=== PATIENT | male | born 1980 | race Two or more races ===

== ENCOUNTER 2016-10-03 12:05 | Emergency (ER) | payer OTHER ==
[~2016-10-03] VITALS: Ht 182.9 cm; Wt 93.0 kg
--- NOTE | 2016-10-03 12:57 | Emergency Room Report ---
History of Present Illness General Chief Complaint: Skin Rash/Abscess Source: Patient Present Illness HPI 36 YO Male presents to the ED C/O Erythema, swelling, and induration to a bump on the left cheek, and right anterior lower chest. pt. denies fevers or chills. pt. states he is currently in rehab for heroin addiction. denies IVDU, reports smoking heroin. pt. denies itching. Pt states pain is 7/10 in severity and localized to the two lesions, and exacerbated with palpation. pt. admits to digital manipulation several days ago which he believes caused lesions to swell. Pt. states he is not sure when his last tetanus vaccination was. Denies CP, Palpitations, LOC, AMS, dizziness, Changes in Vision, Sensation, paresthesias, or a sudden severe headache. Allergies: Coded Allergies: No Known Allergies (Unverified , 10/03/16) Patient History Past Medical History: see triage record Past Surgical History: none Pertinent Family History: none Reviewed Nursing Documentation: PMH: Agreed, PSxH: Agreed Nursing Documentation-PMH Past Medical History: No History, Except For Hx Cardiac Problems: No - drug abuse opiates Review of Systems All Other Systems: negative except mentioned in HPI Physical Exam Vital Signs Date Time Temp Pulse Resp B/P Pulse Ox O2 Delivery O2 Flow Rate FiO2 10/03/16 12:30 98.1 77 18 120/78 99 Room Air Sp02 EP Interpretation: reviewed, normal General Appearance: no apparent distress, alert, GCS 15, non-toxic Head: normocephalic, atraumatic, other - swelling, and induration to the left lower cheek. 2.5 cm in diameter. Eyes: bilateral eye PERRL, bilateral eye normal inspection ENT: hearing grossly normal, normal pharynx, no angioedema, normal voice Neck: full range of motion, supple/symm/no masses Respiratory: lungs clear, normal breath sounds, speaking full sentences Cardiovascular #1: regular rate, rhythm, no edema Musculoskeletal: back normal, gait/station normal, normal range of motion, non- tender Neurologic: alert, oriented x3, responsive, motor strength/tone normal, sensory intact, speech normal Psychiatric: judgement/insight normal, memory normal, mood/affect normal Skin: normal color, no rash, warm/dry, well hydrated, other - two localized areas of swelling, and induration to the left lower cheek. 2.5 cm in diameter. and right anterior chest 2cm, tenderness to both with surrounding erythema. Procedures Incision and Drainage Incision and Drainage #1: Consent: Verbal Site: left lower cheek Blade Size: 11 I & D Procedure: betadine prep Wound Location: face Wound's Depth, Shape: superficial Wound Length (cm): 0 Wound Explored: contaminated - purulent d/c , and thick capsule also noted. Anesthesia: Lidocaine w/ Epi Volume Anesthetic (ccs): 1 Patient Tolerated: Well Complications: None Incision and Drainage #2: Consent: Verbal Blade Size: 11 I & D Procedure: betadine prep Wound Location: chest - anterior right chest Wound's Depth, Shape: superficial Wound Length (cm): 1 Wound Explored: contaminated - purulent d/c , thick d/c, and capsule noted. Anesthesia: Lidocaine w/ Epi Volume Anesthetic (ccs): 1 Splint Applied?: No Sling Applied?: No Patient Tolerated: Well Complications: None Medical Decision Making PA Attestation Dr. Hernandez is my supervising Physician whom patient management has been discussed with. Diagnostic Impression: Primary Impression: Abscess ER Course 36 YO Male presents to the ED C/O Erythema, swelling, and induration to a bump on the left cheek, and right anterior lower chest. pt. denies fevers or chills. pt. states he is currently in rehab for heroin addiction. denies IVDU, reports smoking heroin. pt. denies itching. Pt states pain is 7/10 in severity and localized to the two lesions, and exacerbated with palpation. pt. admits to digital manipulation several days ago which he believes caused lesions to swell. Pt. states he is not sure when his last tetanus vaccination was. Denies CP, Palpitations, LOC, AMS, dizziness, Changes in Vision, Sensation, paresthesias, or a sudden severe headache. Ddx considered but are not limited to cellulitis, abscess, cystic acne, necrotizing fasciitis, insect bite. Vital signs: are WNL, pt. is afebrile H&PE are most consistent with Soft tissue localized infection/ abscess. ORDERS: none required at this time, the diagnosis is clinical ED INTERVENTIONS: -I & D of abscess of the face and chest- see procedure notes. -Doxycycline PO - Pt. declines tdap as he is worried he is medically un-insured at the moment. DISCHARGE: At this time pt. is stable for d/c to home. Will provide printed patient care instructions, and any necessary prescriptions. Care plan and follow up instructions have been discussed with the patient prior to discharge. Last Vital Signs Date Time Temp Pulse Resp B/P Pulse Ox O2 Delivery O2 Flow Rate FiO2 10/03/16 12:30 98.1 77 18 120/78 99 Room Air Disposition: HOME, SELF-CARE Condition: Stable Scripts Ibuprofen* (MOTRIN*) 600 Mg Tablet 600 MG ORAL THREE TIMES A DAY, #20 TAB 0 Refills Prov: Hanh Borrero 10/03/16 Doxycycline Hyclate* (VIBRAMYCIN*) 100 Mg Capsule 100 MG ORAL EVERY 12 HOURS for 7 Days, #14 CAP 0 Refills Prov: Hanh Borrero 10/03/16 Patient Instructions: Abscess Additional Instructions: Take medications as directed. Follow up with a Primary Care Provider in 3-5 days, even if your symptoms have resolved. --Please review list of primary care clinics, if you do not already have a primary care provider Return sooner to ED if new symptoms occur, or current symptoms become worse. - Please note that this Emergency Department Report was dictated using [employer]supervisor [employer] technology software, occasionally this can lead to erroneous entry secondary to interpretation by the dictation equipment. Hanh Borrero Oct 03, 2016 12:57
[2016-10-03] MEDS ORDERED: Lidocaine 1% 10mg/ml/Epi 0.005mg/ml 30ml vial INJ ONE (13:00)
[2016-10-03] MEDS ORDERED: Bacitracin Oint UD TOPIC ONE (13:00)
[2016-10-03] MEDS ORDERED: VIBRAMYCIN100 MG ORAL (13:15)
[2016-10-03] MEDS ORDERED: IBUPROFEN600 MG ORAL (13:16)
[2016-10-03 14:24] VITALS: BP 123/81
[2016-10-03 14:25] VITALS: BP 120/78
== END 2016-10-03 14:26 | disposition home or self-care (01) ==
LOC: EMR 12:40
DX: L02.01 Cutaneous abscess of face (principal); L02.213 Cutaneous abscess of chest wall
CPT/HCPCS: 10060

== ENCOUNTER 2016-10-29 17:38 | Emergency (ER) | payer OTHER ==
[~2016-10-29] VITALS: Ht 182.9 cm; Wt 95.3 kg
[~2016-10-29 17:38] MED LIST: IBUPROFEN600 MG ORAL; VIBRAMYCIN100 MG ORAL
[2016-10-29] MEDS ORDERED: CEPHALEXIN500 MG ORAL (18:27)
[2016-10-29] MEDS ORDERED: ERYTHROMYCIN3.5 GM LEFT EYE (18:27)
[2016-10-29 18:30] VITALS: BP 118/71
[2016-10-29 18:35] VITALS: BP 118/71
--- NOTE | 2016-10-29 21:57 | Emergency Room Report ---
History of Present Illness General Chief Complaint: Eye Problems Source: Patient Present Illness [facility] The patient is a 36-year-old male presenting for left eye pain. He states pain began 3 days ago localized to the L inferior eyelid. Worse with touch. He denies DC from the eye. Described as a 10 out of 10 throbbing sensation. He is also complaining of possible skin infection of the left cheek. He states that he had incision and drainage within the past month of this area which did help but he has noticed a red rash in the same region. This area is tender as well described as a 5/10 dull ache and does not radiate. Has denies other symptoms including change in vision, nausea, vomiting, fever, chills Allergies: Coded Allergies: No Known Allergies (Unverified , 10/03/16) Patient History Past Medical History: see triage record Pertinent Family History: none Reviewed Nursing Documentation: PMH: Agreed, PSxH: Agreed Nursing Documentation-PMH Hx Cardiac Problems: No - drug abuse opiates Review of Systems All Other Systems: negative except mentioned in HPI Physical Exam Vital Signs Date Time Temp Pulse Resp B/P (MAP) Pulse Ox O2 Delivery O2 Flow Rate FiO2 10/29/16 18:06 98.1 87 20 118/71 98 Room Air Sp02 EP Interpretation: reviewed, normal General Appearance: no apparent distress, alert, GCS 15, non-toxic Head: normocephalic, atraumatic Eyes: left eye other - stye of L inferior eyelid, bilateral eye normal inspection, bilateral eye PERRL, bilateral eye EOMI ENT: hearing grossly normal, normal pharynx, no angioedema, normal voice Neck: full range of motion, supple/symm/no masses Musculoskeletal: back normal, gait/station normal, normal range of motion, non- tender Neurologic: alert, oriented x3, responsive, motor strength/tone normal, sensory intact, speech normal Psychiatric: judgement/insight normal, memory normal, mood/affect normal, no suicidal/homicidal ideation Skin: other - erythema of the L cheek 1cm. Tender Medical Decision Making PA Attestation Dr. Hairston is my supervising physician. Patient management was discussed with my supervising physician Diagnostic Impression: Primary Impression: Hordeolum externum (stye) Qualified Codes: H00.015 - Hordeolum externum left lower eyelid Additional Impression: Cellulitis Qualified Codes: L03.211 - Cellulitis of face ER Course The patient is a 36 yo M presenting for L eye pain and possible skin infection Differential diagnoses considered but not limited to bacterial conjunctivitis, viral conjunctivitis, blepharitiis, hordeolum, cellultis, abscess, among others PE: afebrile. NAD Stye of the L mid inferior eyelid. TTP. No injection. PERRL. L cheek has 1cm erythema over site of past I&D. No fluctuance. Stye information given for warm compress. ER precautions given Last Vital Signs Date Time Temp Pulse Resp B/P (MAP) Pulse Ox O2 Delivery O2 Flow Rate FiO2 10/29/16 18:35 98.1 20 118/71 98 Room Air 10/29/16 18:06 87 Status: improved Disposition: HOME, SELF-CARE Condition: Improved Scripts Cephalexin* (KEFLEX*) 500 Mg Capsule 500 MG ORAL EVERY 12 HOURS, #14 CAP 0 Refills Prov: KRISTOFER LANDRY.AHernando 10/29/16 Erythromycin Base (ERYTHROMYCIN*) 3.5 Gm Oint...g. 1 APPLIC LEFT EYE Q6HR, #3.5 GM 0 Refills Prov: KRISTOFER LANDRY P.A. 10/29/16 Referrals: [facility],REFERRING (PCP) Patient Instructions: Cellulitis, Stye Additional Instructions: I discussed my findings with the patient. All questions and concerns have been answered. Treatment and medication compliance have been addressed. I advised the patient that they need to follow up with PMD in 3-5 days. Return to ED if symptoms worsen, new symptoms arise, or if needed for any reason. Patient verbalized understanding of discharge instructions. KRISTOFER LANDRY Oct 29, 2016 21:57
== END 2016-10-29 18:35 | disposition home or self-care (01) ==
LOC: EMR 18:20
DX: H00.015 Hordeolum externum left lower eyelid (principal); L03.211 Cellulitis of face
CPT/HCPCS: 99284